=== PATIENT | female | born 1980 | race Caucasian/White ===

== ENCOUNTER 2016-12-11 12:42 | Day surgery (SDC) | payer OTHER ==
[~2016-12-11] VITALS: Ht 167.6 cm; Wt 89.0 kg
[2016-12-11 13:21] VITALS: Ht 167.6 cm; Wt 89.0 kg
[2016-12-11 13:55] VITALS: BP 131/66; PULSE 78; RESP 18
[2016-12-11 14:25] VITALS: BP 119/60; PULSE 61; RESP 18
[2016-12-11] MEDS ORDERED: MIDAZOLAM 1 MG/ML 2 ML INJ ONE ×2 (14:40)
[2016-12-11] MEDS ORDERED: MEPERIDINE 50 MG INJ ONE (14:41)
[2016-12-11] MEDS ORDERED: FENTAnyl 50 MCG/ML VIAL ONE (14:43)
[2016-12-11 14:55] VITALS: BP 109/60; PULSE 72; RESP 14
--- NOTE | 2016-12-15 09:30 | GILP ---
DATE OF PROCEDURE: 12/11/2016 PREOPERATIVE DIAGNOSIS: History of rectal bleeding and history of colon polyps. PROCEDURE PERFORMED: Colonoscopy up to cecum. POSTOPERATIVE DIAGNOSIS: Diverticulosis entire colon from left to right. DESCRIPTION OF PROCEDURE: The patient was put in left lateral decubitus. After obtaining informed consent, she was given 4 mg IV Versed and 100 mcg of fentanyl and 25 mg of Demerol. Rectal exam done. Small external hemorrhoid noted. Small internal grade 1 hemorrhoids were noted. Advanced Olympus video colonoscope all the way to cecum. Appendiceal opening and ileocecal valve identified. Cecum, ascending colon, transverse colon, descending colon, sigmoid colon, demonstrated diverticulosis in the entire colon. Upon removal of scope, patient had no complications. PLAN: Will be to follow up as outpatient p.r.n., high-fiber diet. Repeat colonoscopy in 10 years. Dictated By: Torsten Pompa MD /chavo/sara /Document#: [id number]
== END 2016-12-11 17:48 | disposition home or self-care (01) ==
LOC: GIL 12:42
PROVIDERS: ATTEND Internal Medicine
DX: K57.90 Diverticulosis of intestine, part unspecified, without perforation or abscess without bleeding (principal); E66.9 Obesity, unspecified; Z68.31 Body mass index [BMI] 31.0-31.9, adult
CPT/HCPCS: 45378; 84703; J2175; J2250; J3010; Z7610